=== PATIENT | female | born 1995 | race Two or more races ===

== ENCOUNTER 2017-10-14 20:24 | Emergency (ER) | payer SELFPAY ==
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
[2017-10-14 21:55] VITALS: BP 119/74
== END 2017-10-14 21:54 | disposition home or self-care (01) ==
LOC: ED 20:24
DX: M54.5 Low back pain (principal); M54.2 Cervicalgia; V49.50XA Passenger injured in collision with unspecified motor vehicles in traffic accident, initial encounter; Y92.410 Unspecified street and highway as the place of occurrence of the external cause
CPT/HCPCS: 99281